=== PATIENT | male | born 1950 | race Caucasian/White ===

== ENCOUNTER → 2020-11-16 | Outpatient (CLI) | payer MEDICARE, OTHER ==
[2015-09-24 13:41] VITALS: BP 135/88
[~2020-11-16] MED LIST: ALFU10TA23 PO; ASPI81TA50 PO; ESOM20CA PO; GABA-585 PO
--- NOTE | 2020-11-16 09:05 | RAD ---
XR FINGER(S)_RIGHT 2+VIEWS DATE: 11/16/2020 8:40 AM INDICATION: RIGHT THUMB INJURY / Spl. Instructions: / History: COMPARISON: None. FINDINGS: Bones: There is no evidence of acute fracture or dislocation. Joints: Mild degenerative changes of the first CMC and IP joints. Miscellaneous: None. IMPRESSION: No evidence of acute fracture. Electronically signed by: Will Keith MD (11/16/2020 9:03 AM) [id number]
== END ==
LOC: RAD 08:28
PROVIDERS: ATTEND Family Medicine
DX: S69.91XA Unspecified injury of right wrist, hand and finger(s), initial encounter (principal); M19.041 Primary osteoarthritis, right hand; X58.XXXA Exposure to other specified factors, initial encounter; Y93.89 Activity, other specified; Y92.89 Other specified places as the place of occurrence of the external cause; Y99.8 Other external cause status
CPT/HCPCS: 73140